=== PATIENT | female | born 1970 | race Caucasian/White ===

== ENCOUNTER → 2016-08-09 | Outpatient (CLI) | payer OTHER, BC | LOC: MW.LAB 12:12 | PROVIDERS: ATTEND Internal Medicine Hematology & Oncology | DX: D49.3 Neoplasm of unspecified behavior of breast (principal) | CPT/HCPCS: 36415; 82565 ==

== ENCOUNTER 2017-06-13 13:24 | Emergency (ER) | payer OTHER, BC ==
[2017-06-13] MEDS ORDERED: Sodium Chloride 0.9% 1,000 ML IV ONE (13:32)
--- NOTE | 2017-06-13 13:45 | EDM.PDOC ---
ED HPI GENERAL MEDICAL PROBLEM - General Chief Complaint: Abdominal Pain Stated Complaint: LOWER R ABD PAIN Time Seen by Provider: 06/13/17 13:28 Source of Information: Reports: Patient History Limitations: Reports: No Limitations - History of Present Illness INITIAL COMMENTS - FREE TEXT/NARRATIVE: HISTORY AND PHYSICAL: History of present illness: Patient is a 46 showed female who presents to the emergency room today with complaints of right lower quadrant pain, nausea and diarrhea. Patient states that has been mild and she has been able to attend work without interfering, but over the last 2 days has become more bothersome. SHe reports that it feels like menstrual cramps, but has not had a menstrual period in years. He denies any vaginal bleeding or discharge. Denies any constipation or dysuria. She denies any chest pain, shortness of breath, fever or chills. Patient does have a history of breast cancer with a double mastectomy and has been taking tamoxifen. She was told that she has a lymphoma which is not detected as of yet but they are monitoring her for this. She gets CT scans at [facility] every 6 months and has adequate follow-up through them. They said the cancer has not spread "hasn't yet" to the other organs. Review of systems: As per history of present illness and below otherwise all systems reviewed and negative. Past medical history: As per history of present illness and as reviewed below otherwise noncontributory. Surgical history: As per history of present illness and as reviewed below otherwise noncontributory. Social history: No reported history of drug or alcohol abuse. Family history: As per history of present illness and as reviewed below otherwise noncontributory. Physical exam: General: Nontoxic-appearing 46 showed female. Alert and oriented. Appears in no acute distress. HEENT: Atraumatic, normocephalic, pupils reactive, negative for conjunctival pallor or scleral icterus, mucous membranes moist, throat clear, neck supple, nontender, trachea midline. No meningeal sign. No drooling or trismus. Lungs: Clear to auscultation, breath sounds equal bilaterally, chest nontender. Heart: S1S2, regular rate and rhythm, no murmurs noted Abdomen: Soft, nondistended, mild tenderness to the right lower quadrant-no rebound tenderness. Negative for masses or hepatosplenomegaly. Negative for costovertebral tenderness. Pelvis: Stable nontender. Genitourinary: Deferred. Rectal: Deferred. Extremities: Atraumatic, moves all extremities per self without difficulty or deficits negative for cords or calf pain. Neurovascular unremarkable. Neuro: Awake, alert, oriented. Cranial nerves II through XII unremarkable. Cerebellum unremarkable. Motor and sensory unremarkable throughout. Exam nonfocal. Lab work is unremarkable. Her CT does show a large 10 x 6.6 cm right ovarian cyst. No evidence of appendicitis or any bowel obstruction or involvement. Patient reports that she has had cysts in the past which she has had removed. Due to her hormone therapy and along with history and answer I did encourage her to inform her provider at [facility] of this. I did set up a follow-up appointment with Samantha Sweeneyervin for 06/25/17 at 4 PM (per patient request). Diagnostics: CBC, CMP, amylase, lipase, UA, CT abdomen and pelvis Therapeutics: IV fluid, Toradol, Zofran Impression: #1 Abdominal pain #2 ovarian cyst, right Plan: 1. Please notify your provider in [place] of your visit to our emergency room today. It would be beneficial for you to have a local primary care provider for routine health issues. A follow-up appointment has been made for you with Samantha Sweeneyervin on June 25, 2017 (06/25/2017) at 4 PM at the [facility] clinic. 2. Tramadol has been prescribed for you for severe pain otherwise please take ibuprofen or Aleve as directed. Gentle heat to the area may be beneficial as well. 3. Turn to the ED as needed and as discussed. Definitive disposition and diagnosis as appropriate pending reevaluation and review of above. Duration: Day(s): Location: Reports: Abdomen RLQ Pain Score (Numeric/FACES): 3 - Related Data Allergies Allergy/AdvReac Type Severity Reaction Status Date / Time silver Allergy Other Verified 06/13/17 13:46 [From Tegaderm AG Mesh] vancomycin Allergy Other Verified 06/13/17 13:46 Home Meds: Home Meds Citalopram [Citalopram HBr] 40 mg PO DAILY 06/13/17 [History] Pantoprazole [ProTONIX] 40 mg PO DAILY 06/13/17 [History] Simvastatin [Zocor] 20 mg PO DAILY 06/13/17 [History] Tamoxifen [Nolvadex] 20 mg PO DAILY 06/13/17 [History] Vitamin D3/Folic Acid [Roxifol-D Tablet] 50,000 units PO DAILY 06/13/17 [History ] traZODone HCl [Trazodone HCl] 50 mg PO DAILY 06/13/17 [History] ED ROS GENERAL - Review of Systems Review Of Systems: ROS reveals no pertinent complaints other than HPI. ED EXAM, GI/ABD - Physical Exam Exam: See Below (See dictation) Course - Vital Signs Last Recorded V/S: Last Vital Signs Temp 99.6 F 06/13/17 13:43 Pulse 83 06/13/17 13:43 Resp 20 06/13/17 13:43 BP 143/46 H 06/13/17 13:43 Pulse Ox 97 06/13/17 13:43 - Orders/Labs/Meds Labs: Laboratory Tests 06/13/17 06/13/17 06/13/17 Range/Units 13:39 13:55 13:55 WBC 7.53 (4.0-11.0) K/uL RBC 4.85 (4.30-5.90) M/uL Hgb 13.1 (12.0-16.0) g/dL Hct 39.2 (36.0-46.0) % MCV 80.8 (80.0-98.0) fL MCH 27.0 (27.0-32.0) pg MCHC 33.4 (31.0-37.0) g/dL RDW Std Deviation 41.3 (28.0-62.0) fl RDW Coeff of Sherman 14 (11.0-15.0) % Plt Count 320 (150-400) K/uL MPV 9.20 (7.40-12.00) fL Neut % (Auto) 60.4 (48.0-80.0) % Lymph % (Auto) 30.3 (16.0-40.0) % [place] % (Auto) 7.2 (0.0-15.0) % Eos % (Auto) 1.7 (0.0-7.0) % Baso % (Auto) 0.4 (0.0-1.5) % Neut # (Auto) 4.6 (1.4-5.7) K/uL Lymph # (Auto) 2.3 (0.6-2.4) K/uL [place] # (Auto) 0.5 (0.0-0.8) K/uL Eos # (Auto) 0.1 (0.0-0.7) K/uL Baso # (Auto) 0.0 (0.0-0.1) K/uL Nucleated RBC % 0.0 /100WBC Nucleated RBCs # 0 K/uL Sodium 141 (136-146) mmol/L Potassium 3.9 (3.5-5.1) mmol/L Chloride 109 (98-110) mmol/L Carbon Dioxide 22 (21-31) mmol/L BUN 12 (6.0-23.0) mg/dL Creatinine 0.7 (0.6-1.5) mg/dL Est Cr Clr Drug Dosing 90.36 mL/min Estimated GFR (MDRD) > 60.0 ml/min Glucose 96 (60-110) mg/dL Calcium 9.4 (8.8-10.8) mg/dL Total Bilirubin 0.3 (0.1-1.5) mg/dL AST 14 (5-40) IU/L ALT 16 (8-54) IU/L Alkaline Phosphatase 59 (40-150) Total Protein 7.2 (6.0-8.0) g/dL Albumin 4.4 (3.5-5.0) g/dL Globulin 2.8 (2.0-3.5) g/dL Albumin/Globulin Ratio 1.6 (1.3-2.8) Amylase 51 (10-90) U/L Lipase 36 (7-80) U/L Urine Color YELLOW Urine Appearance CLEAR Urine pH 5.5 (5.0-8.0) Ur Specific Elizabeth 1.020 (1.001-1.035) Urine Protein NEGATIVE (NEGATIVE) mg/dL Urine Glucose (UA) NEGATIVE (NEGATIVE) mg/dL Urine Ketones NEGATIVE (NEGATIVE) mg/dL Urine Occult Blood SMALL H (NEGATIVE) Urine Nitrite NEGATIVE (NEGATIVE) Urine Bilirubin NEGATIVE (NEGATIVE) Urine Urobilinogen 0.2 (<2.0) EU/dL Ur Leukocyte Esterase NEGATIVE (NEGATIVE) Urine RBC 0-2 (0-2/HPF) Urine WBC 0-2 (0-5/HPF) Ur Epithelial Cells FEW (NONE-FEW) Urine Bacteria RARE (NEGATIVE) Urine Mucus LIGHT (NONE-MOD) Meds: Medications Discontinued Medications Generic Name Dose Route Start Last Admin Trade Name Alona PRN Reason Stop Dose Admin Sodium Chloride 1,000 mls @ 999 mls/hr 06/13/17 13:32 06/13/17 14:18 Normal Saline IV 06/13/17 14:32 999 mls/hr STAT ONE Administration Iopamidol 100 ml 06/13/17 15:12 06/13/17 15:16 Isovue-370 (76%) IVPUSH 06/13/17 15:13 100 ml ONETIME STA Administration Ketorolac Tromethamine 30 mg 06/13/17 14:12 06/13/17 14:19 Toradol IVPUSH 06/13/17 14:13 30 mg ONETIME ONE Administration Morphine Sulfate 4 mg 06/13/17 15:19 06/13/17 15:31 Morphine IVPUSH 06/13/17 15:20 4 mg ONETIME ONE Administration Ondansetron HCl 4 mg 06/13/17 14:12 06/13/17 14:19 Zofran IVPUSH 06/13/17 14:13 4 mg ONETIME ONE Administration Departure - Departure Time of Disposition: 15:49 Disposition: Home, Self-Care 01 Clinical Impression: Ovarian cyst Qualifiers: Laterality: right Qualified Code(s): N83.201 - Unspecified ovarian cyst, right side - Discharge Information Referrals: Abhay Willis MD [Primary Care Provider] - Forms: ED Department Discharge Additional Instructions: My general discharge The following information is given to patients seen in the emergency department who are being discharged to home. This information is to outline your options for follow-up care. We provide all patients seen in our emergency department with a follow-up referral. The need for follow-up, as well as the timing and circumstances, are variable depending upon the specifics of your emergency department visit. If you don't have a primary care physician on staff, we will provide you with a referral. We always advise you to contact your personal physician following an emergency department visit to inform them of the circumstance of the visit and for follow-up with them and/or the need for any referrals to a consulting specialist. The emergency department will also refer you to a specialist when appropriate. This referral assures that you have the opportunity for follow-up care with a specialist. All of these measure are taken in an effort to provide you with optimal care, which includes your follow-up. Under all circumstances we always encourage you to contact your private physician who remains a resource for coordinating your care. When calling for follow-up care, please make the office aware that this follow-up is from your recent emergency room visit. If for any reason you are refused follow-up, please contact the [facility] Emergency Department at and asked to speak to the emergency department charge nurse [facility] Primary Care: Samantha Colón (Women's Health STAMP ANALYST) [address] [place] [id number] 1. Please notify your provider in [place] of your visit to our emergency room today. It would be beneficial for you to have a local primary care provider for routine health issues. A follow-up appointment has been made for you with Samantha Gurrola on June 25, 2017 (06/25/2017) at 4 PM at the women's health clinic. 2. Tramadol has been prescribed for you for severe pain otherwise please take ibuprofen or Aleve as directed. Gentle heat to the area may be beneficial as well. 3. Turn to the ED as needed and as discussed.
[2017-06-13] MEDS ORDERED: Ketorolac 30 MG/ML SDV IVPUSH ONE (14:12)
[2017-06-13] MEDS ORDERED: Ondansetron 4 MG/2 ML SDV IVPUSH ONE (14:12)
[2017-06-13 14:34] LABS: CHLORIDE,CL 109 mmol/L (98-110); SODIUM,NA 141 mmol/L (136-146)
[2017-06-13] MEDS ORDERED: Iopamidol 755 Mg/ML 100 ML Bottle IVPUSH STA (15:12)
[2017-06-13] MEDS ORDERED: Morphine 4 MG/ML Syringe IVPUSH ONE (15:19)
--- NOTE | 2017-06-13 15:29 | CT ---
CT of the abdomen and pelvis with contrast. HISTORY: Pain TECHNIQUE: Axial CT images were obtained of the abdomen and pelvis following administration of 100 mL of Isovue-370 in the right antecubital fossa without complication. Coronal and sagittal reconstructi ons obtained. FINDINGS: The lung bases are clear, no pleural effusion. Breast implants are noted. There is fluid signal noted surrounding the left breast implant, otherwise no evidence of intracapsular rupture. The liver, spleen, and adrenal glands appear normal. The pancreas is unremarkable. Cholecystectomy cl ips are noted. No bulky retroperitoneal lymphadenopathy or abdominal ascites. The kidneys enhance and function symmetrically without evidence of an obstructive uropathy. The large and small bowel are normal in caliber without evidence of obstruction. The appendix is norm al. No bulky pelvic lymphadenopathy or free pelvic fluid. The urinary bladder is normal. There is a l arge 10 x 6.6 cm right ovarian cyst without definite mural nodularity. The left ovary appears normal. Uterus is unremarkable. No suspicious osseous abnormalities. IMPRESSION: 1. Large 10 x 6.6 cm right ovarian cyst. Follow-up may be beneficial. 2. Otherwise no acute findings demonstrated within the abdomen or pelvis.
== END 2017-06-13 15:59 | disposition home or self-care (01) ==
LOC: MW.ED 13:24
DX: N83.201 Unspecified ovarian cyst, right side (principal); Z88.1 Allergy status to other antibiotic agents; Z79.899 Other long term (current) drug therapy
CPT/HCPCS: 36415; 74177; 80053; 81001; 82150; 83690; 85025; 96361; 96374; 96375; 99284; J1885; J2270; J2405; J7040; Q9967

== ENCOUNTER 2017-06-23 12:45 | Emergency (ER) | payer OTHER, BC ==
--- NOTE | 2017-06-23 13:00 | EDM.PDOC ---
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 She did have a biopsy done by Dr. Green on 2017. She was told to "expect some spotting" but since that time has had more than expected bleeding (per patient). Patient had a CT scan on 06/13/2017 which showed a cystic mass. This was followed up with a pelvic ultrasound on 2017 which showed a large cystic mass on the right adnexa measuring 13 cm and some endometrial thickening. Dr. Green performed the biopsy, but soon after that time she has had "gushing of blood whenever I stand". She does report she has some dizziness and feeling lightheaded with position changes. She is having right lower quadrant pain, rating it a 5 out of 10. Reports that the plan was to have a total hysterectomy on 06/27/2017, pending on the biopsy results. Denies any fever, chills, chest pain or shortness of breath. Denies using any tampons or recent sexual/pelvic activity. Patient does have a past medical history of breast cancer with double mastectomy. Currently on tamoxifen for admission. Sees an oncologist at [facility]. Review of systems: As per history of present illness and below otherwise all systems reviewed and negative. Past medical history: As per history of present illness and as reviewed below otherwise noncontributory. Surgical history: As per history of present illness and as reviewed below otherwise noncontributory. Social history: No reported history of drug or alcohol abuse. Family history: As per history of present illness and as reviewed below otherwise noncontributory. Physical exam: General: Well-developed and well-nourished 46-year-old female. Alert and oriented. Nontoxic appearing and in no acute distress. HEENT: Atraumatic, normocephalic, pupils reactive, negative for conjunctival pallor or scleral icterus, mucous membranes moist, throat clear, neck supple, nontender, trachea midline. Lungs: Clear to auscultation, breath sounds equal bilaterally, chest nontender. Heart: S1S2, regular rate and rhythm Abdomen: Soft, nondistended, suprapubic and right lower quadrant tenderness. Negative for masses or hepatosplenomegaly. Negative for costovertebral tenderness. Pelvis: Stable nontender. Genitourinary: This was done with a associate attorney at the bedside. Cervical OS has moderate amount of bleeding, steady slow trickle. Right adenexal tenderness. Rectal: Deferred. Extremities: Atraumatic, negative for cords or calf pain. Neurovascular unremarkable. Neuro: Awake, alert, oriented. Cranial nerves II through XII unremarkable. Cerebellum unremarkable. Motor and sensory unremarkable throughout. Exam nonfocal. Labs on 06/13/2017: Hemoglobin 13.1, today's reading is 12.3. Labs are normal. Pelvic exam was completed, please see physical exam for details. Dr Green was consulted on this case. He states she is able to go home as her labs and vital signs are stable. She does have an appointment on Saturday for follow-up with him. Shared this information with the patient. We reviewed signs and symptoms that would prompt her to come back to the emergency room. We will give her a prescription for [place] for comfort. She is agreeable to plan of care. She denies any further questions at this time. Diagnostics: CBC, CMP, INR Therapeutics: IV fluid, morphine, pelvic exam Impression: #1 Post biopsy bleeding #2 abdominal pain Plan: 1. Dr. Green was consulted on this case. Your hemoglobin, vital signs and bleeding are stable at this point. Norma has advised for you to keep your appointment you have scheduled on Saturday. Will discuss further care during this time. 2. Take the medication as prescribed. May cause drowsiness, so do not take while needing to function outside of the house or driving. Continue to use pads , not tampons. 3. Return to the emergency room as needed and as discussed. Definitive disposition and diagnosis as appropriate pending reevaluation and review of above. Onset Date: 06/21/17 Duration: Day(s): Location: Reports: Pelvis right ovary Pain Score (Numeric/FACES): 5 - Related Data Allergies Allergy/AdvReac Type Severity Reaction Status Date / Time silver Allergy Other Verified 06/23/17 12:56 [From Tegaderm AG Mesh] vancomycin Allergy Other Verified 06/23/17 12:56 Home Meds: Home Meds Citalopram [Citalopram HBr] 40 mg PO DAILY 06/13/17 [History] Pantoprazole [ProTONIX] 40 mg PO DAILY 06/13/17 [History] Simvastatin [Zocor] 20 mg PO DAILY 06/13/17 [History] Tamoxifen [Nolvadex] 20 mg PO DAILY 06/13/17 [History] Vitamin D3/Folic Acid [Roxifol-D Tablet] 50,000 units PO DAILY 06/13/17 [History ] traZODone HCl [Trazodone HCl] 50 mg PO DAILY 06/13/17 [History] Past Medical History - Infectious Disease History Infectious Disease History: Reports: Chicken Pox - Past Surgical History HEENT Surgical History: Reports: Tonsillectomy GI Surgical History: Reports: Cholecystectomy Female Surgical History: Reports: Mastectomy, Other (See Below) Other Female Surgeries/Procedures: tubes removed, bilateral breast mastectomy , Laparotomy Musculoskeletal Surgical History: Reports: Other (See Below) Other Musculoskeletal Surgeries/Procedures:: R knee latereral release, Left hand plate Social & Family History - Family History Family Medical History: Noncontributory - Tobacco Use Smoking Status *Q: Never Smoker Second Hand Smoke Exposure: No - Caffeine Use Caffeine Use: Reports: Coffee, Soda - Recreational Drug Use Recreational Drug Use: No ED ROS GENERAL - Review of Systems Review Of Systems: ROS reveals no pertinent complaints other than HPI. ED EXAM, GENERAL - Physical Exam Exam: See Below (See dictation) Course - Vital Signs Last Recorded V/S: Last Vital Signs Temp 97.6 F 06/23/17 13:54 Pulse 72 06/23/17 13:54 Resp 16 06/23/17 13:54 BP 138/69 06/23/17 13:54 Pulse Ox 97 06/23/17 13:54 - Orders/Labs/Meds Orders: Active Orders 24 hr Category Date Time Status UA W/MICROSCOPIC [URIN] Stat Lab 06/23/17 13:50 Ordered Labs: Laboratory Tests 06/23/17 06/23/17 06/23/17 Range/Units 13:14 13:40 13:40 WBC 6.16 (4.0-11.0) K/uL RBC 4.57 (4.30-5.90) M/uL Hgb 12.3 (12.0-16.0) g/dL Hct 36.9 (36.0-46.0) % MCV 80.7 (80.0-98.0) fL MCH 26.9 L (27.0-32.0) pg MCHC 33.3 (31.0-37.0) g/dL RDW Std Deviation 40.2 (28.0-62.0) fl RDW Coeff of Sherman 14 (11.0-15.0) % Plt Count 282 (150-400) K/uL MPV 9.60 (7.40-12.00) fL Neut % (Auto) 63.1 (48.0-80.0) % Lymph % (Auto) 28.9 (16.0-40.0) % [place] % (Auto) 6.0 (0.0-15.0) % Eos % (Auto) 1.5 (0.0-7.0) % Baso % (Auto) 0.5 (0.0-1.5) % Neut # (Auto) 3.9 (1.4-5.7) K/uL Lymph # (Auto) 1.8 (0.6-2.4) K/uL [place] # (Auto) 0.4 (0.0-0.8) K/uL Eos # (Auto) 0.1 (0.0-0.7) K/uL Baso # (Auto) 0.0 (0.0-0.1) K/uL Nucleated RBC % 0.0 /100WBC Nucleated RBCs # 0 K/uL INR 0.99 Sodium 140 (136-146) mmol/L Potassium 4.2 (3.5-5.1) mmol/L Chloride 107 (98-110) mmol/L Carbon Dioxide 23 (21-31) mmol/L BUN 11 (6.0-23.0) mg/dL Creatinine 0.7 (0.6-1.5) mg/dL Est Cr Clr Drug Dosing 90.36 mL/min Estimated GFR (MDRD) > 60.0 ml/min Glucose 97 (60-110) mg/dL Calcium 9.3 (8.8-10.8) mg/dL Total Bilirubin 0.3 (0.1-1.5) mg/dL AST 16 (5-40) IU/L ALT 16 (8-54) IU/L Alkaline Phosphatase 54 (40-150) Total Protein 6.9 (6.0-8.0) g/dL Albumin 4.3 (3.5-5.0) g/dL Globulin 2.6 (2.0-3.5) g/dL Albumin/Globulin Ratio 1.7 (1.3-2.8) Meds: Medications Discontinued Medications Generic Name Dose Route Start Last Admin Trade Name Alona PRN Reason Stop Dose Admin Hydrocodone Bitart/Acetaminophen 1 tab 06/23/17 14:01 [place] 325-5 Mg PO 06/23/17 14:02 ONETIME ONE Sodium Chloride 1,000 mls @ 999 mls/hr 06/23/17 13:08 Normal Saline IV 06/23/17 14:08 STAT ONE Morphine Sulfate 2 mg 06/23/17 13:08 Morphine IVPUSH 06/23/17 13:09 ONETIME ONE Ondansetron HCl 4 mg 06/23/17 13:08 Zofran IVPUSH 06/23/17 13:09 ONETIME ONE Departure - Departure Time of Disposition: 14:24 Disposition: Home, Self-Care 01 Clinical Impression: Postoperative vaginal bleeding following genitourinary procedure Abdominal pain Qualifiers: Abdominal location: right lower quadrant Qualified Code(s): R10.31 - Right lower quadrant pain - Discharge Information Referrals: Marcio Green MD [Primary Care Provider] - Forms: ED Department Discharge Additional Instructions: My general discharge The following information is given to patients seen in the emergency department who are being discharged to home. This information is to outline your options for follow-up care. We provide all patients seen in our emergency department with a follow-up referral. The need for follow-up, as well as the timing and circumstances, are variable depending upon the specifics of your emergency department visit. If you don't have a primary care physician on staff, we will provide you with a referral. We always advise you to contact your personal physician following an emergency department visit to inform them of the circumstance of the visit and for follow-up with them and/or the need for any referrals to a consulting specialist. The emergency department will also refer you to a specialist when appropriate. This referral assures that you have the opportunity for follow-up care with a specialist. All of these measure are taken in an effort to provide you with optimal care, which includes your follow-up. Under all circumstances we always encourage you to contact your private physician who remains a resource for coordinating your care. When calling for follow-up care, please make the office aware that this follow-up is from your recent emergency room visit. If for any reason you are refused follow-up, please contact the [facility] Emergency Department at and asked to speak to the emergency department charge nurse. [facility] Primary Care - Women's Health [address] [place] [phone] Green was consulted on your case, he is aware of your visit. Your hemoglobin, vital signs and bleeding are stable at this point. Norma has advised for you to keep your appointment you have scheduled on Saturday. Will discuss further care during this time. 2. Take the medication as prescribed. May cause drowsiness, so do not take while needing to function outside of the house or driving. Continue to use pads , not tampons. 3. Return to the emergency room as needed and as discussed. - My Orders Last 24 Hours: My Active Orders 06/23/17 13:50 UA W/MICROSCOPIC [URIN] Stat - Assessment/Plan Last 24 Hours: My Active Orders 06/23/17 13:50 UA W/MICROSCOPIC [URIN] Stat
[2017-06-23] MEDS ORDERED: Ondansetron 4 MG/2 ML SDV IVPUSH ONE (13:08)
[2017-06-23] MEDS ORDERED: Sodium Chloride 0.9% 1,000 ML IV ONE (13:08)
[2017-06-23] MEDS ORDERED: Morphine 2 MG/ML Syringe IVPUSH ONE (13:08)
[2017-06-23] MEDS ORDERED: Acetaminophen/HYDROcodone 325-5 MG Tab PO ONE (14:01)
[2017-06-23 14:06] LABS: CHLORIDE,CL 107 mmol/L (98-110); SODIUM,NA 140 mmol/L (136-146)
== END 2017-06-23 14:42 | disposition home or self-care (01) ==
LOC: MW.ED 12:45
DX: N99.820 Postprocedural hemorrhage of a genitourinary system organ or structure following a genitourinary system procedure (principal); R10.31 Right lower quadrant pain; Z88.1 Allergy status to other antibiotic agents; Z79.899 Other long term (current) drug therapy
CPT/HCPCS: 36415; 80053; 85025; 85610; 99284; A9270

== ENCOUNTER 2017-06-27 06:48 | Day surgery (SDC) | payer OTHER, BC ==
[2017-06-26 12:46] LABS: CHLORIDE,CL 107 mmol/L (98-110); SODIUM,NA 141 mmol/L (136-146)
[~2017-06-27 06:48] MED LIST: Lactated Ringers 1,000 ML IV SCH; Sodium Chloride 0.9% 10 ML Syringe FLUSH PRN; Sodium Chloride 0.9% 2.5 ML Syringe FLUSH PRN; ceFAZolin 2 GM in Premix Bag 1 BAG IV ONE
[2017-06-27] MEDS ORDERED: Ondansetron 4 MG/2 ML SDV ONE (07:09)
[2017-06-27] MEDS ORDERED: Midazolam 1 MG/ML 2 ML SDV ONE (07:09)
[2017-06-27] MEDS ORDERED: Propofol 200 MG/20 ML SDV ONE (07:09)
[2017-06-27] MEDS ORDERED: Succinylcholine/Normal Saline 200 MG/10 ML Syringe ONE (07:09)
[2017-06-27] MEDS ORDERED: fentaNYL 250 MCG/5 ML SDV ONE (07:09)
[2017-06-27] MEDS ORDERED: Rocuronium 10 MG/ML 10 ML Syringe ONE (07:09)
[2017-06-27] MEDS ORDERED: Lidocaine 2% 5 ML SDV ONE (07:09)
[2017-06-27] MEDS ORDERED: Famotidine 20 MG/2 ML SDV IVPUSH ONE (07:21)
[2017-06-27] MEDS ORDERED: Scopolamine 1.5 MG Transdermal Patch TRDERM PRN (07:22)
--- NOTE | 2017-06-27 07:28 | PCM.PREANE ---
Preanesthetic Assessment - Anesthesia/Transfusion/Family Hx Type of Anesthesia Reaction: Excessive Nausea/Vomiting Family History of Anesthesia Reaction: No Transfusion History: No Prior Transfusion(s) Intubation History: Unknown - Review of Systems General: No Symptoms Pulmonary: No Symptoms Cardiovascular: No Symptoms Gastrointestinal: No Symptoms Neurological: No Symptoms Other: Reports: None - Physical Assessment Height: 1.65 m Weight: 102.058 kg ASA Class: 2 Mental Status: Alert & Oriented x3 Airway Class: Mallampati = 2 Dentition: Reports: Normal Dentition Thyro-Mental Finger Breadths: 3 Mouth Opening Finger Breadths: 2 (small mouth) ROM/Head Extension: Full Lungs: Clear to Auscultation, Normal Respiratory Effort Cardiovascular: Regular Rate, Regular Rhythm - Lab Values: Laboratory Last Values WBC 4.94 K/uL (4.0-11.0) 06/26/17 12:07 RBC 4.36 M/uL (4.30-5.90) 06/26/17 12:07 Hgb 11.7 g/dL (12.0-16.0) L 06/26/17 12:07 Hct 35.4 % (36.0-46.0) L 06/26/17 12:07 MCV 81.2 fL (80.0-98.0) 06/26/17 12:07 MCH 26.8 pg (27.0-32.0) L 06/26/17 12:07 MCHC 33.1 g/dL (31.0-37.0) 06/26/17 12:07 RDW Std Deviation 41.2 fl (28.0-62.0) 06/26/17 12:07 RDW Coeff of [place] 14 % (11.0-15.0) 06/26/17 12:07 Plt Count 287 K/uL (150-400) 06/26/17 12:07 MPV 9.20 fL (7.40-12.00) 06/26/17 12:07 Nucleated RBC % 0.0 /100WBC 06/26/17 12:07 Nucleated RBCs # 0 K/uL 06/26/17 12:07 Sodium 141 mmol/L (136-146) 06/26/17 12:07 Potassium 4.0 mmol/L (3.5-5.1) 06/26/17 12:07 Chloride 107 mmol/L (98-110) 06/26/17 12:07 Carbon Dioxide 26 mmol/L (21-31) 06/26/17 12:07 BUN 9 mg/dL (6.0-23.0) 06/26/17 12:07 Creatinine 0.7 mg/dL (0.6-1.5) 06/26/17 12:07 Est Cr Clr Drug Dosing 90.36 mL/min 06/26/17 12:07 Estimated GFR (MDRD) > 60.0 ml/min 06/26/17 12:07 Glucose 103 mg/dL (60-110) 06/26/17 12:07 Calcium 9.5 mg/dL (8.8-10.8) 06/26/17 12:07 HCG, Qual NEGATIVE (NEG) 06/26/17 12:07 Blood Type A POSITIVE 06/26/17 12:07 Antibody Screen NEGATIVE 06/26/17 12:07 - Allergies Allergies/Adverse Reactions: Allergies Allergy/AdvReac Type Severity Reaction Status Date / Time vancomycin Allergy cj Verified 06/26/17 09:44 syndrome steri strips Allergy Bleeding Uncoded 06/26/17 09:44 - Blood Blood Available: No - Anesthesia Plan Pre-Op Medication Ordered: None - Acknowledgements Anesthesia Type Planned: General Anesthesia Pt an Appropriate Candidate for the Planned Anesthesia: Yes Alternatives and Risks of Anesthesia Discussed w Pt/Guardian: Yes Pt/Guardian Understands and Agrees with Anesthesia Plan: Yes PreAnesthesia Questionnaire HEENT History: Reports: None Cardiovascular History: Reports: High Cholesterol Respiratory History: Reports: Sleep Apnea Other Respiratory History: uses CPAP (instructed to bring in with her) Gastrointestinal History: Reports: GERD, Hiatal Hernia Genitourinary History: Reports: None 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 (See Below) Other OB/BYN History: hx invetro fertilization Musculoskeletal History: Reports: Arthritis, Fracture Other Musculoskeletal History: fx left hand Neurological History: Reports: Concussion, Migraines Psychiatric History: Reports: Anxiety, Depression Endocrine/Metabolic History: Reports: Obesity/BMI 30+ Hematologic History: Reports: None Immunologic History: Reports: None Oncologic (Cancer) History: Reports: Breast (infiltrating ductal cancer of right breast) Dermatologic History: Reports: Eczema - Infectious Disease History Infectious Disease History: Reports: Chicken Pox - Past Surgical History Head Surgeries/Procedures: Reports: None HEENT Surgical History: Reports: Tonsillectomy Cardiovascular Surgical History: Reports: None Respiratory Surgical History: Reports: None GI Surgical History: Reports: Cholecystectomy, EGD Female Surgical History: Reports: Breast Biopsy, Mastectomy, Other (See Below ) Other Female Surgeries/Procedures: laparotomy-tubes removed (salpingectomy), bilateral breast mastectomy, breast lumpectomy, hysteroscopy with polypectomy Endocrine Surgical History: Reports: None Neurological Surgical History: Reports: None Musculoskeletal Surgical History: Reports: Other (See Below) Other Musculoskeletal Surgeries/Procedures:: R knee latereral release, Left hand plate and screws Oncologic Surgical History: Reports: Biopsy of Breast, Mastectomy Other Oncologic Surgeries/Procedures: latonya mastectomy, hx of bigg cath insertion and removal Dermatological Surgical History: Reports: None - SUBSTANCE USE Smoking Status *Q: Never Smoker Second Hand Smoke Exposure: No Recreational Drug Use History: No - HOME MEDS Home Medications: Home Meds Citalopram [Citalopram HBr] 40 mg PO DAILY 06/13/17 [History] Pantoprazole [ProTONIX] 40 mg PO DAILY 06/13/17 [History] Simvastatin [Zocor] 20 mg PO DAILY 06/13/17 [History] Tamoxifen [Nolvadex] 20 mg PO DAILY 06/13/17 [History] traZODone HCl [Trazodone HCl] 50 mg PO DAILY 06/13/17 [History] Ascorbic Acid [Vitamin C] 1,000 mg PO DAILY 06/26/17 [History] Cholecalciferol (Vitamin D3) [Vitamin D3] 2,000 units PO DAILY 06/26/17 [History ] Hydrocodone/Acetaminophen [Hydrocodon-Acetaminophen 5-325] 1 tab PO ASDIRECTED PRN 06/26/17 [History] Ibuprofen 3 - 4 tab PO ASDIRECTED PRN 06/26/17 [History] Naproxen 1 tab PO ASDIRECTED PRN 06/26/17 [History] Naproxen Sodium [Aleve] 2 tab PO ASDIRECTED PRN 06/26/17 [History] Vitron With Iron 1 tab PO DAILY 06/26/17 [History] traMADol [Ultram] 50 mg PO ASDIRECTED PRN 06/26/17 [History] - CURRENT (IN HOUSE) MEDS Current Meds: Current Medications Famotidine (Pepcid) 20 mg IVPUSH ONETIME ONE Stop: 06/27/17 07:22 Lactated Ringer's (Ringers, Lactated) 1,000 mls @ 125 mls/hr IV ASDIRECTED [facility] Scopolamine (Transderm-Scop) 1.5 mg TRDERM Q72H PRN PRN Reason: Nausea Sodium Chloride (Saline Flush) 10 ml FLUSH ASDIRECTED PRN PRN Reason: Keep Vein Open Sodium Chloride (Saline Flush) 2.5 ml FLUSH ASDIRECTED PRN PRN Reason: Keep Vein Open Discontinued Medications Fentanyl (Sublimaze) Confirm Administered Dose 250 mcg .ROUTE .STK-MED ONE Stop: 06/27/17 07:10 Cefazolin Sodium/Dextrose 2 gm (/ Premix) 50 mls @ 100 mls/hr IV ONETIME ONE Stop: 06/26/17 11:30 Lidocaine (Xylocaine-Mpf 2%) Confirm Administered Dose 5 ml .ROUTE .STK-MED ONE Stop: 06/27/17 07:10 Midazolam HCl (Versed 1 Mg/Ml) Confirm Administered Dose 2 mg .ROUTE .STK-MED ONE Stop: 06/27/17 07:10 Ondansetron HCl (Zofran) Confirm Administered Dose 4 mg .ROUTE .STK-MED ONE Stop: 06/27/17 07:10 Propofol (Diprivan 20 Ml) Confirm Administered Dose 200 mg .ROUTE .STK-MED ONE Stop: 06/27/17 07:10 Rocuronium [place] (Zemuron) Confirm Administered Dose 100 mg .ROUTE .STK-MED ONE Stop: 06/27/17 07:10 Succinylcholine Chloride (Succinylcholine In Ns Pf) Confirm Administered Dose 200 mg .ROUTE .STK-MED ONE Stop: 06/27/17 07:10
[2017-06-27] MEDS ORDERED: ceFAZolin 1 GM Vial ONE (08:15)
[2017-06-27] MEDS ORDERED: Sodium Chloride 0.9% 20 ML ONE (08:15)
[2017-06-27] MEDS ORDERED: ePHEDrine 50 MG/ML SDV ONE (08:25)
[2017-06-27] MEDS ORDERED: Dexamethasone 4 MG/ML 5 ML MDV ONE (08:27)
[2017-06-27] MEDS ORDERED: Glycopyrrolate 0.2 MG/ML SDV ONE (08:28)
[2017-06-27] MEDS ORDERED: Furosemide 40 MG/4 ML VIAL ONE (08:33)
[2017-06-27] MEDS ORDERED: Octyl 2-Cyanoacrylate 1 Tube ONE (08:46)
[2017-06-27] MEDS ORDERED: Fluorescein 5 ML Vial ONE (08:47)
[2017-06-27] MEDS ORDERED: fentaNYL 100 MCG/2 ML SDV ONE (09:01)
[2017-06-27] MEDS ORDERED: Promethazine 25 MG/ML SDV IM PRN (10:22)
[2017-06-27] MEDS ORDERED: Acetaminophen/oxyCODONE 325-5 MG Tab PO PRN (10:22)
[2017-06-27] MEDS ORDERED: Ketorolac 30 MG/ML SDV IVPUSH ONE (10:22)
[2017-06-27] MEDS ORDERED: Ondansetron 4 MG/2 ML SDV IVPUSH PRN (10:22)
[2017-06-27] MEDS ORDERED: Morphine 4 MG/ML Syringe IVPUSH PRN (10:22)
[2017-06-27] MEDS ORDERED: Ketorolac 30 MG/ML SDV IVPUSH PRN (10:22)
--- NOTE | 2017-06-27 10:26 | PCM.OPNOTE ---
- General Post-Op/Procedure Note Date of Surgery/Procedure: 06/27/17 Operative Procedure(s): TLH BSO CYSTO Findings: R. Ovarian Cyst Post-Op Diagnosis: Same Anesthesia Technique: General ET Tube Primary Surgeon: Marcio Green EBL in mLs: 150 Complications: None Condition: Good
[2017-06-27] MEDS ORDERED: Belladonna Alkaloids/Opium 16.2-30 MG Supp RECTAL ONE (11:04)
[2017-06-27] MEDS: Morphine 2 MG/ML Syringe IVPUSH PRN ×2 (11:07→20:23)
[2017-06-27] MEDS ORDERED: Belladonna Alkaloids/Opium 16.2-30 MG Supp ONE (11:10)
--- NOTE | 2017-06-27 13:46 | OR ---
SURGEON: Marcio Green MD DATE OF PROCEDURE: PREOPERATIVE DIAGNOSES: 1. Menometrorrhagia. 2. Right ovarian cyst. POSTOPERATIVE DIAGNOSES: 1. Menometrorrhagia. 2. Right ovarian cyst. OPERATIONS PERFORMED: 1. Multiple puncture. 2. Diagnostic laparoscopy. 3. Lysis of adhesions. 4. Total laparoscopic hysterectomy. 5. Laparoscopic bilateral salpingo-oophorectomy. 6. Cystoscopy. 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 ANESTHESIA: General endotracheal intubation, Harvinder Curran and Dr. Jolley. ESTIMATED BLOOD LOSS: 150 mL. COMPLICATIONS: None. FINDINGS: Right ovarian cyst about 10 cm in diameter; pelvic adhesion from her previous pelvic surgery, which is tubal ligation. INDICATION FOR SURGERY: [place] refer to the admit note. PROCEDURE IN DETAIL: The patient was brought to the OR, properly identified, and after adequate level of anesthesia, the patient was placed in lithotomy position. After taking a time-out, the patient was prepped and draped in sterile fashion as usual. Amado catheter was placed in the bladder, and the Lion surgical manipulator was placed in the uterus for manipulation. Then, the operation shifted abdominally. Stab wound done beneath the umbilicus. The Veress needle was placed in the peritoneal cavity and sterilized with 3.5 L of carbon dioxide. Then, utilizing the Visiport technique, central trocar was placed under direct vision, so once we are in, then a 10 to 12 trocar in the left iliac fossa and 5 mm trocar in the right iliac fossa. Later on, we needed 5 mm trocar suprapubically for retraction. The operation was started by lysing the adhesion from the omentum and the anterior abdominal wall on the left pelvic sidewall. Once we did that and restored normal anatomy, then the superior pedicle coagulated and transected from both side. Tubes and ovary included with the specimens, and then the round ligament coagulated and transected, and then the anterior leaf of the ligament dissected downward medially pushing the bladder completely away from the operative field. Then, a Lion manipulator the circular ring can be easily palpated through the vagina and then circular incision in the vaginal mucosa around the tip of that manipulator detaching the cervix from its attachment to the uterus. Then, the tubes and ovary, and the uterus in both sides removed vaginally and then pneumoperitoneum re-established by placing vaginal pack in the vagina, and then thorough irrigation of the pelvis shows no oozing and no bleeding. We proceeded to close the vaginal cuff laparoscopically using 2-0 PDS interrupted sutures. While we are doing that, we asked Anesthesia personnel to give the patient fluorescein and once the vagina was closed, then the Amado catheter was removed and cystoscopy was performed. The bladder was intact. Both ureteric orifices were seen with the dye coming from both of them. Thus, the patency of both ureters verified. Satisfied with this findings, the instrument and hardware were retrieved from the abdomen and the vagina, and the multiple laparoscopic incision was closed with 3-0 Vicryl monofilamentous and Dermabond. Instrument and sponge counts were correct, and the patient tolerated the procedure well and went to recovery room in stable general condition. RAQUEL DOUGHERTY /[id number]
[2017-06-27] MEDS: Acetaminophen/oxyCODONE 325-5 MG Tab PO PRN (14:01)
[2017-06-27] MEDS ORDERED: Simvastatin 20 MG Tab PO SCH (21:00)
[2017-06-27] MEDS ORDERED: Pantoprazole 40 MG Tab.CR PO SCH (21:00)
[2017-06-27] MEDS ORDERED: Citalopram 20 MG Tab PO SCH (21:00)
[2017-06-27] MEDS ORDERED: Tamoxifen 10 MG Tab PO SCH (21:00)
[2017-06-28] MEDS: Acetaminophen/oxyCODONE 325-5 MG Tab PO PRN (00:12)
[2017-06-28 07:01] LABS: CHLORIDE,CL 106 mmol/L (98-110); SODIUM,NA 139 mmol/L (136-146)
--- NOTE | 2017-06-28 09:08 | PCM48HPAN ---
Post Anesthesia Note - EVALUATION WITHIN 48HRS OF ANESTHETIC Vital Signs in Normal Range: Yes Patient Participated in Evaluation: Yes Respiratory Function Stable: Yes Airway Patent: Yes Cardiovascular Function Stable: Yes Hydration Status Stable: Yes Pain Control Satisfactory: Yes Nausea and Vomiting Control Satisfactory: Yes Mental Status Recovered: Yes
--- NOTE | 2017-06-28 09:25 | PCM.SURGPN ---
- General Info Date of Service: 06/28/17 POD#: 1 Functional Status: Reports: Pain Controlled - Review of Systems General: Reports: No Symptoms HEENT: Reports: No Symptoms Pulmonary: Reports: No Symptoms Cardiovascular: Reports: No Symptoms Gastrointestinal: Reports: No Symptoms Genitourinary: Reports: No Symptoms Musculoskeletal: Reports: No Symptoms Skin: Reports: No Symptoms Neurological: Reports: No Symptoms Psychiatric: Reports: No Symptoms - Patient Data Vitals - Most Recent: Last Vital Signs Temp 36.7 C 06/28/17 08:00 Pulse 79 06/28/17 08:00 Resp 16 06/28/17 08:00 BP 121/59 L 06/28/17 08:00 Pulse Ox 95 06/28/17 08:00 Weight - Most Recent: 102.058 kg I&O - Last 24 Hours: Intake & Output 06/27/17 06/28/17 06/28/17 22:59 06:59 14:59 Intake Total 600 2000 Output Total 1750 1700 Balance -1150 300 Lab Results Last 24 Hrs: Laboratory Results - last 24 hr 06/28/17 06/28/17 Range/Units 06:20 06:20 WBC 9.46 (4.0-11.0) K/uL RBC 3.62 L (4.30-5.90) M/uL Hgb 9.7 L (12.0-16.0) g/dL Hct 29.5 L (36.0-46.0) % MCV 81.5 (80.0-98.0) fL MCH 26.8 L (27.0-32.0) pg MCHC 32.9 (31.0-37.0) g/dL RDW Std Deviation 41.8 (28.0-62.0) fl RDW Coeff of [place] 14 (11.0-15.0) % Plt Count 268 (150-400) K/uL MPV 9.20 (7.40-12.00) fL Neut % (Auto) 65.9 (48.0-80.0) % Lymph % (Auto) 26.5 (16.0-40.0) % [facility] % (Auto) 7.3 (0.0-15.0) % Eos % (Auto) 0.2 (0.0-7.0) % Baso % (Auto) 0.1 (0.0-1.5) % Neut # (Auto) 6.2 H (1.4-5.7) K/uL Lymph # (Auto) 2.5 H (0.6-2.4) K/uL [facility] # (Auto) 0.7 (0.0-0.8) K/uL Eos # (Auto) 0.0 (0.0-0.7) K/uL Baso # (Auto) 0.0 (0.0-0.1) K/uL Nucleated RBC % 0.0 /100WBC Nucleated RBCs # 0 K/uL Sodium 139 (136-146) mmol/L Potassium 3.9 (3.5-5.1) mmol/L Chloride 106 (98-110) mmol/L Carbon Dioxide 26 (21-31) mmol/L BUN 7 (6.0-23.0) mg/dL Creatinine 0.7 (0.6-1.5) mg/dL Est Cr Clr Drug Dosing 90.36 mL/min Estimated GFR (MDRD) > 60.0 ml/min Glucose 104 (60-110) mg/dL Calcium 8.9 (8.8-10.8) mg/dL Med Orders - Current: Current Medications Citalopram Hydrobromide (Celexa) 40 mg PO BEDTIME [facility] Last Admin: 06/27/17 21:01 Dose: 40 mg Lactated Ringer's (Ringers, Lactated) 1,000 mls @ 125 mls/hr IV ASDIRECTED [facility] Ketorolac Tromethamine (Toradol) 30 mg IVPUSH Q6H PRN PRN Reason: Pain (severe 7-10) Stop: 07/02/17 10:22 Last Admin: 06/27/17 16:54 Dose: 30 mg Morphine Sulfate (Morphine) 2 mg IVPUSH Q2H PRN PRN Reason: Pain (severe 7-10) Last Admin: 06/27/17 20:23 Dose: 2 mg Morphine Sulfate (Morphine) 4 mg IVPUSH Q2H PRN PRN Reason: Pain (severe 7-10) Ondansetron HCl (Zofran) 4 mg IVPUSH Q6H PRN PRN Reason: Nausea/Vomiting Oxycodone/Acetaminophen (Percocet 325-5 Mg) 1 tab PO Q4H PRN PRN Reason: Pain (moderate 4-6) Last Admin: 06/28/17 00:12 Dose: 1 tab Oxycodone/Acetaminophen (Percocet 325-5 Mg) 2 tab PO Q4H PRN PRN Reason: Pain (moderate 4-6) Last Admin: 06/28/17 07:13 Dose: 2 tab Pantoprazole Sodium (Protonix) 40 mg PO BEDTIME [facility] Last Admin: 06/27/17 21:00 Dose: 40 mg Tamoxifen 20 Mg 1 each PO BEDTIME [facility] Promethazine HCl (Phenergan) 25 mg IM Q6H PRN PRN Reason: Nausea/Vomiting Scopolamine (Transderm-Scop) 1.5 mg TRDERM Q72H PRN PRN Reason: Nausea Last Admin: 06/27/17 07:28 Dose: 1.5 mg Simvastatin (Zocor) 20 mg PO BEDTIME [facility] Last Admin: 06/27/17 21:00 Dose: 20 mg Sodium Chloride (Saline Flush) 10 ml FLUSH ASDIRECTED PRN PRN Reason: Keep Vein Open Sodium Chloride (Saline Flush) 2.5 ml FLUSH ASDIRECTED PRN PRN Reason: Keep Vein Open Discontinued Medications Belladonna Alkaloids/Opium (B & O Supprettes No. 15a) 1 supp RECTAL ONETIME ONE Stop: 06/27/17 11:05 Last Admin: 06/27/17 11:16 Dose: 1 supp Belladonna Alkaloids/Opium (B & O Supprettes No. 15a) Confirm Administered Dose 1 supp .ROUTE .STK-MED ONE Stop: 06/27/17 11:11 Last Admin: 06/27/17 14:09 Dose: Not Given Cefazolin Sodium (Ancef) Confirm Administered Dose 2 gm .ROUTE .STK-MED ONE Stop: 06/27/17 08:16 Dexamethasone (Dexamethasone) Confirm Administered Dose 20 mg .ROUTE .STK-MED ONE Stop: 06/27/17 08:28 Ephedrine Sulfate (Ephedrine Sulfate) Confirm Administered Dose 50 mg .ROUTE .STK-MED ONE Stop: 06/27/17 08:26 Famotidine (Pepcid) 20 mg IVPUSH ONETIME ONE Stop: 06/27/17 07:22 Last Admin: 06/27/17 07:28 Dose: 20 mg Fentanyl (Sublimaze) Confirm Administered Dose 250 mcg .ROUTE .STK-MED ONE Stop: 06/27/17 07:10 Fentanyl (Sublimaze) Confirm Administered Dose 100 mcg .ROUTE .ST-MED ONE Stop: 06/27/17 09:02 Fluorescein Sodium (Ak-Fluor) Confirm Administered Dose 5 ml .ROUTE .STK-MED ONE Stop: 06/27/17 08:48 Furosemide (Lasix) Confirm Administered Dose 40 mg .ROUTE .ST-MED ONE Stop: 06/27/17 08:34 Glycopyrrolate (Robinul) Confirm Administered Dose 0.2 mg .ROUTE .ST-MED ONE Stop: 06/27/17 08:29 Cefazolin Sodium/Dextrose 2 gm (/ Premix) 50 mls @ 100 mls/hr IV ONETIME ONE Stop: 06/26/17 11:30 Last Admin: 06/27/17 12:47 Dose: Not Given Sodium Chloride (Normal Saline) Confirm Administered Dose 20 mls @ as directed .ROUTE .[facility]-MED ONE Stop: 06/27/17 08:16 Ketorolac Tromethamine (Toradol) 30 mg IVPUSH ONETIME ONE Stop: 06/27/17 10:23 Last Admin: 06/27/17 11:03 Dose: 30 mg Lidocaine (Xylocaine-Mpf 2%) Confirm Administered Dose 5 ml .ROUTE .ST-MED ONE Stop: 06/27/17 07:10 Midazolam HCl (Versed 1 Mg/Ml) Confirm Administered Dose 2 mg .ROUTE .ST-MED ONE Stop: 06/27/17 07:10 Octyl Cyanoacrylate (Dermabond Advance) Confirm Administered Dose 1 applic .ROUTE .ST-MED ONE Stop: 06/27/17 08:47 Ondansetron HCl (Zofran) Confirm Administered Dose 4 mg .ROUTE .ST-MED ONE Stop: 06/27/17 07:10 Propofol (Diprivan 20 Ml) Confirm Administered Dose 200 mg .ROUTE .ST-MED ONE Stop: 06/27/17 07:10 Rocuronium [place] (Zemuron) Confirm Administered Dose 100 mg .ROUTE .STK-MED ONE Stop: 06/27/17 07:10 Succinylcholine Chloride (Succinylcholine In Ns Pf) Confirm Administered Dose 200 mg .ROUTE .STK-MED ONE Stop: 06/27/17 07:10 Tamoxifen Citrate (Nolvadex) 20 mg PO DAILY [facility]FA[facility] Last Admin: 06/27/17 22:25 Dose: Not Given - Exam Wound/Incisions: Healing Well General: Alert, Oriented HEENT: Pupils Equal Neck: Supple Lungs: Clear to Auscultation, Normal Respiratory Effort Cardiovascular: Regular Rate, Regular Rhythm GI/Abdominal Exam: Normal Bowel Sounds, Soft, Non-Tender, No Organomegaly, No Distention, No Abnormal Bruit, No Mass, Pelvis Stable Extremities: Normal Inspection, Normal Range of Motion, Non-Tender, No Pedal Edema, Normal Capillary Refill Skin: Warm, Dry, Intact Neurological: No New Focal Deficit Psy/Mental Status: Alert, Normal Affect, Normal Mood - Problem List Review Problem List Initiated/Reviewed/Updated: Yes - My Orders Last 24 Hours: Active Orders 24 hr Category Date Time Status Patient Status [ADT] Routine ADT 06/27/17 10:22 Active Notify Provider Vital Signs [RC] ASDIRECTED Care 06/27/17 10:22 Active Oxygen Therapy [RC] ASDIRECTED Care 06/27/17 10:22 Active RT BiPAP/CPAP [RC] ASDIRECTED Care 06/27/17 10:36 Active RT Incentive Spirometry [RC] Q2HWA Care 06/27/17 10:22 Active Up With Assistance [RC] PER UNIT ROUTINE Care 06/27/17 10:22 Active Up ad Amanda [RC] PER UNIT ROUTINE Care 06/27/17 10:22 Active Regular Diet [DIET] Diet 06/27/17 Lunch Active Acetaminophen/oxyCODONE [Percocet 325-5 MG] Med 06/27/17 10:22 Active 1 tab PO Q4H PRN Acetaminophen/oxyCODONE [Percocet 325-5 MG] Med 06/27/17 10:22 Active 2 tab PO Q4H PRN Citalopram [Celexa] Med 06/27/17 21:00 Active 40 mg PO BEDTIME Ketorolac [Toradol] Med 06/27/17 10:22 Active 30 mg IVPUSH Q6H PRN Morphine Med 06/27/17 10:22 Active 2 mg IVPUSH Q2H PRN Morphine Med 06/27/17 10:22 Active 4 mg IVPUSH Q2H PRN Ondansetron [Zofran] Med 06/27/17 10:22 Active 4 mg IVPUSH Q6H PRN Pantoprazole [ProTONIX] Med 06/27/17 21:00 Active 40 mg PO BEDTIME Patient's Own Medication [Ptom] Med 06/28/17 21:00 Active 1 each PO BEDTIME Promethazine [Phenergan] Med 06/27/17 10:22 Active 25 mg IM Q6H PRN Simvastatin [Zocor] Med 06/27/17 21:00 Active 20 mg PO BEDTIME Peripheral IV Discontinue [OM.PC] Routine Oth 06/27/17 10:22 Ordered Sequential Compression Device [OM.PC] Per Unit Routine Oth 06/27/17 10:22 Ordered Resuscitation Status Routine Resus Stat 06/27/17 10:22 Ordered Medication Orders Citalopram Hydrobromide (Celexa) 40 mg PO BEDTIME [facility] Last Admin: 06/27/17 21:01 Dose: 40 mg Lactated Ringer's (Ringers, Lactated) 1,000 mls @ 125 mls/hr IV ASDIRECTED [facility]FA[facility] Ketorolac Tromethamine (Toradol) 30 mg IVPUSH Q6H PRN PRN Reason: Pain (severe 7-10) Stop: 07/02/17 10:22 Last Admin: 06/27/17 16:54 Dose: 30 mg Morphine Sulfate (Morphine) 2 mg IVPUSH Q2H PRN PRN Reason: Pain (severe 7-10) Last Admin: 06/27/17 20:23 Dose: 2 mg Admin: 06/27/17 11:07 Dose: 2 mg Morphine Sulfate (Morphine) 4 mg IVPUSH Q2H PRN PRN Reason: Pain (severe 7-10) Ondansetron HCl (Zofran) 4 mg IVPUSH Q6H PRN PRN Reason: Nausea/Vomiting Oxycodone/Acetaminophen (Percocet 325-5 Mg) 1 tab PO Q4H PRN PRN Reason: Pain (moderate 4-6) Last Admin: 06/28/17 00:12 Dose: 1 tab Admin: 06/27/17 14:01 Dose: 1 tab Oxycodone/Acetaminophen (Percocet 325-5 Mg) 2 tab PO Q4H PRN PRN Reason: Pain (moderate 4-6) Last Admin: 06/28/17 07:13 Dose: 2 tab Pantoprazole Sodium (Protonix) 40 mg PO BEDTIME [facility] Last Admin: 06/27/17 21:00 Dose: 40 mg Tamoxifen 20 Mg 1 each PO BEDTIME [facility] Promethazine HCl (Phenergan) 25 mg IM Q6H PRN PRN Reason: Nausea/Vomiting Scopolamine (Transderm-Scop) 1.5 mg TRDERM Q72H PRN PRN Reason: Nausea Last Admin: 06/27/17 07:28 Dose: 1.5 mg Simvastatin (Zocor) 20 mg PO BEDTIME [facility] Last Admin: 06/27/17 21:00 Dose: 20 mg Sodium Chloride (Saline Flush) 10 ml FLUSH ASDIRECTED PRN PRN Reason: Keep Vein Open Sodium Chloride (Saline Flush) 2.5 ml FLUSH ASDIRECTED PRN PRN Reason: Keep Vein Open - Assessment Assessment (Free Text/Narrative):: Status post total laparoscopic hysterectomy and laparoscopic bilateral salpingo- oophorectomy and cystoscopy today's postoperative day #1 patient doing well she is voiding without any problem she is nonbleeding she is on regular diet tolerated very well she is ambulatory laparoscopic incision is clean and dry - Plan Plan (Free Text/Narrative):: The post hysterectomy instruction is given to the patient the patient would be discharged today prescription for Percocet 7.5/325 is given for postoperative pain patient is to be seen in the office one week after her surgery
--- NOTE | 2017-06-28 09:26 | PCM.DCSUM1 ---
Discharge Summary - Discharge Data Discharge Date: 06/28/17 Discharge Disposition: Home, Self-Care 01 Condition: Good - Patient Summary/Data Operative Procedure(s) Performed: TL[facility] BSO CYSTO - Patient Instructions Diet: Usual Diet as Tolerated Activity: As Tolerated Driving: Do Not Drive Showering/Bathing: May Shower Notify Provider of: Fever, Increased Pain, Nausea and/or Vomiting - Discharge Plan Home Medications: Home Meds Citalopram [Citalopram HBr] 40 mg PO DAILY 06/13/17 [History] Pantoprazole [ProTONIX] 40 mg PO DAILY 06/13/17 [History] Simvastatin [Zocor] 20 mg PO DAILY 06/13/17 [History] Tamoxifen [Nolvadex] 20 mg PO DAILY 06/13/17 [History] traZODone HCl [Trazodone HCl] 50 mg PO DAILY 06/13/17 [History] Ascorbic Acid [Vitamin C] 1,000 mg PO DAILY 06/26/17 [History] Cholecalciferol (Vitamin D3) [Vitamin D3] 2,000 units PO DAILY 06/26/17 [History ] Hydrocodone/Acetaminophen [Hydrocodon-Acetaminophen 5-325] 1 tab PO ASDIRECTED PRN 06/26/17 [History] Ibuprofen 3 - 4 tab PO ASDIRECTED PRN 06/26/17 [History] Naproxen 1 tab PO ASDIRECTED PRN 06/26/17 [History] Naproxen Sodium [Aleve] 2 tab PO ASDIRECTED PRN 06/26/17 [History] Vitron With Iron 1 tab PO DAILY 06/26/17 [History] traMADol [Ultram] 50 mg PO ASDIRECTED PRN 06/26/17 [History] Referrals: Marcio Green MD [Physician] - 07/08/17 8:30 am - General Info Date of Service: 06/28/17 Functional Status: Reports: Pain Controlled - Review of Systems General: Reports: No Symptoms HEENT: Reports: No Symptoms Pulmonary: Reports: No Symptoms Cardiovascular: Reports: No Symptoms Gastrointestinal: Reports: No Symptoms Genitourinary: Reports: No Symptoms Musculoskeletal: Reports: No Symptoms Skin: Reports: No Symptoms Neurological: Reports: No Symptoms Psychiatric: Reports: No Symptoms - Patient Data Vitals - Most Recent: Last Vital Signs Temp 36.7 C 06/28/17 08:00 Pulse 79 06/28/17 08:00 Resp 16 06/28/17 08:00 BP 121/59 L 06/28/17 08:00 Pulse Ox 95 06/28/17 08:00 Weight - Most Recent: 102.058 kg I&O - Last 24 hours: Intake & Output 06/27/17 06/28/17 06/28/17 22:59 06:59 14:59 Intake Total 600 2000 Output Total 1750 1700 Balance -1150 300 Lab Results - Last 24 hrs: Laboratory Results - last 24 hr 06/28/17 06/28/17 Range/Units 06:20 06:20 WBC 9.46 (4.0-11.0) K/uL RBC 3.62 L (4.30-5.90) M/uL Hgb 9.7 L (12.0-16.0) g/dL Hct 29.5 L (36.0-46.0) % MCV 81.5 (80.0-98.0) fL MCH 26.8 L (27.0-32.0) pg MCHC 32.9 (31.0-37.0) g/dL RDW Std Deviation 41.8 (28.0-62.0) fl RDW Coeff of [place] 14 (11.0-15.0) % Plt Count 268 (150-400) K/uL MPV 9.20 (7.40-12.00) fL Neut % (Auto) 65.9 (48.0-80.0) % Lymph % (Auto) 26.5 (16.0-40.0) % [place] % (Auto) 7.3 (0.0-15.0) % Eos % (Auto) 0.2 (0.0-7.0) % Baso % (Auto) 0.1 (0.0-1.5) % Neut # (Auto) 6.2 H (1.4-5.7) K/uL Lymph # (Auto) 2.5 H (0.6-2.4) K/uL [place]mers # (Auto) 0.7 (0.0-0.8) K/uL Eos # (Auto) 0.0 (0.0-0.7) K/uL Baso # (Auto) 0.0 (0.0-0.1) K/uL Nucleated RBC % 0.0 /100WBC Nucleated RBCs # 0 K/uL Sodium 139 (136-146) mmol/L Potassium 3.9 (3.5-5.1) mmol/L Chloride 106 (98-110) mmol/L Carbon Dioxide 26 (21-31) mmol/L BUN 7 (6.0-23.0) mg/dL Creatinine 0.7 (0.6-1.5) mg/dL Est Cr Clr Drug Dosing 90.36 mL/min Estimated GFR (MDRD) > 60.0 ml/min Glucose 104 (60-110) mg/dL Calcium 8.9 (8.8-10.8) mg/dL Med Orders - Current: Current Medications Citalopram Hydrobromide (Celexa) 40 mg PO BEDTIME [facility] Last Admin: 06/27/17 21:01 Dose: 40 mg Lactated Ringer's (Ringers, Lactated) 1,000 mls @ 125 mls/hr IV ASDIRECTED [facility] Ketorolac Tromethamine (Toradol) 30 mg IVPUSH Q6H PRN PRN Reason: Pain (severe 7-10) Stop: 07/02/17 10:22 Last Admin: 06/27/17 16:54 Dose: 30 mg Morphine Sulfate (Morphine) 2 mg IVPUSH Q2H PRN PRN Reason: Pain (severe 7-10) Last Admin: 06/27/17 20:23 Dose: 2 mg Morphine Sulfate (Morphine) 4 mg IVPUSH Q2H PRN PRN Reason: Pain (severe 7-10) Ondansetron HCl (Zofran) 4 mg IVPUSH Q6H PRN PRN Reason: Nausea/Vomiting Oxycodone/Acetaminophen (Percocet 325-5 Mg) 1 tab PO Q4H PRN PRN Reason: Pain (moderate 4-6) Last Admin: 06/28/17 00:12 Dose: 1 tab Oxycodone/Acetaminophen (Percocet 325-5 Mg) 2 tab PO Q4H PRN PRN Reason: Pain (moderate 4-6) Last Admin: 06/28/17 07:13 Dose: 2 tab Pantoprazole Sodium (Protonix) 40 mg PO BEDTIME [facility] Last Admin: 06/27/17 21:00 Dose: 40 mg Tamoxifen 20 Mg 1 each PO BEDTIME [facility] Promethazine HCl (Phenergan) 25 mg IM Q6H PRN PRN Reason: Nausea/Vomiting Scopolamine (Transderm-Scop) 1.5 mg TRDERM Q72H PRN PRN Reason: Nausea Last Admin: 06/27/17 07:28 Dose: 1.5 mg Simvastatin (Zocor) 20 mg PO BEDTIME [facility] Last Admin: 06/27/17 21:00 Dose: 20 mg Sodium Chloride (Saline Flush) 10 ml FLUSH ASDIRECTED PRN PRN Reason: Keep Vein Open Sodium Chloride (Saline Flush) 2.5 ml FLUSH ASDIRECTED PRN PRN Reason: Keep Vein Open Discontinued Medications Belladonna Alkaloids/Opium (B & O Supprettes No. 15a) 1 supp RECTAL ONETIME ONE Stop: 06/27/17 11:05 Last Admin: 06/27/17 11:16 Dose: 1 supp Belladonna Alkaloids/Opium (B & O Supprettes No. 15a) Confirm Administered Dose 1 supp .ROUTE .STK-MED ONE Stop: 06/27/17 11:11 Last Admin: 06/27/17 14:09 Dose: Not Given Cefazolin Sodium (Ancef) Confirm Administered Dose 2 gm .ROUTE .STK-MED ONE Stop: 06/27/17 08:16 Dexamethasone (Dexamethasone) Confirm Administered Dose 20 mg .ROUTE .STK-MED ONE Stop: 06/27/17 08:28 Ephedrine Sulfate (Ephedrine Sulfate) Confirm Administered Dose 50 mg .ROUTE .STK-MED ONE Stop: 06/27/17 08:26 Famotidine (Pepcid) 20 mg IVPUSH ONETIME ONE Stop: 06/27/17 07:22 Last Admin: 06/27/17 07:28 Dose: 20 mg Fentanyl (Sublimaze) Confirm Administered Dose 250 mcg .ROUTE .STK-MED ONE Stop: 06/27/17 07:10 Fentanyl (Sublimaze) Confirm Administered Dose 100 mcg .ROUTE .STK-MED ONE Stop: 06/27/17 09:02 Fluorescein Sodium (Ak-Fluor) Confirm Administered Dose 5 ml .ROUTE .STK-MED ONE Stop: 06/27/17 08:48 Furosemide (Lasix) Confirm Administered Dose 40 mg .ROUTE .STK-MED ONE Stop: 06/27/17 08:34 Glycopyrrolate (Robinul) Confirm Administered Dose 0.2 mg .ROUTE .STK-MED ONE Stop: 06/27/17 08:29 Cefazolin Sodium/Dextrose 2 gm (/ Premix) 50 mls @ 100 mls/hr IV ONETIME ONE Stop: 06/26/17 11:30 Last Admin: 06/27/17 12:47 Dose: Not Given Sodium Chloride (Normal Saline) Confirm Administered Dose 20 mls @ as directed .ROUTE .STK-MED ONE Stop: 06/27/17 08:16 Ketorolac Tromethamine (Toradol) 30 mg IVPUSH ONETIME ONE Stop: 06/27/17 10:23 Last Admin: 06/27/17 11:03 Dose: 30 mg Lidocaine (Xylocaine-Mpf 2%) Confirm Administered Dose 5 ml .ROUTE .STK-MED ONE Stop: 06/27/17 07:10 Midazolam HCl (Versed 1 Mg/Ml) Confirm Administered Dose 2 mg .ROUTE .STK-MED ONE Stop: 06/27/17 07:10 Octyl Cyanoacrylate (Dermabond Advance) Confirm Administered Dose 1 applic .ROUTE .STK-MED ONE Stop: 06/27/17 08:47 Ondansetron HCl (Zofran) Confirm Administered Dose 4 mg .ROUTE .STK-MED ONE Stop: 06/27/17 07:10 Propofol (Diprivan 20 Ml) Confirm Administered Dose 200 mg .ROUTE .STK-MED ONE Stop: 06/27/17 07:10 Rocuronium [place] (Zemuron) Confirm Administered Dose 100 mg .ROUTE .STK-MED ONE Stop: 06/27/17 07:10 Succinylcholine Chloride (Succinylcholine In Ns Pf) Confirm Administered Dose 200 mg .ROUTE .STK-MED ONE Stop: 06/27/17 07:10 Tamoxifen Citrate (Nolvadex) 20 mg PO DAILY [facility] Last Admin: 06/27/17 22:25 Dose: Not Given - Exam General: Reports: Alert, Oriented HEENT: Reports: Pupils Equal, Pupils Reactive, EOMI, Mucous Membr. Moist/Peridot Neck: Reports: Supple Lungs: Reports: Clear to Auscultation, Normal Respiratory Effort Cardiovascular: Reports: Regular Rate, Regular Rhythm GI/Abdominal Exam: Normal Bowel Sounds, Soft, Non-Tender, No Organomegaly, No Distention, No Abnormal Bruit, No Mass, Pelvis Stable (Female) Exam: Normal External Exam, Normal Speculum Exam, Normal Bimanual Exam Rectal (Female) Exam: Normal Exam, Normal Rectal Tone Back Exam: Reports: Normal Inspection, Full Range of Motion Extremities: Normal Inspection, Normal Range of Motion, Non-Tender, No Pedal Edema, Normal Capillary Refill Skin: Reports: Warm, Dry, Intact Wound/Incisions: Reports: Healing Well Neurological: Reports: No New Focal Deficit Psy/Mental Status: Reports: Alert, Normal Affect, Normal Mood *Q Meaningful Use (DIS) - VTE *Q VTE Criteria *Q: - Stroke *Q Stroke Criteria *Q: - AMI *Q AMI Criteria *Q:
== END 2017-06-28 10:45 | disposition home or self-care (01) ==
LOC: MW.SDS 06:48 → MW.MS 10:22 → MW.SDS 06-28 10:45
PROVIDERS: ATTEND Obstetrics & Gynecology
DX: D27.0 Benign neoplasm of right ovary (principal); J30.9 Allergic rhinitis, unspecified; F41.9 Anxiety disorder, unspecified; F32.9 Major depressive disorder, single episode, unspecified; K21.9 Gastro-esophageal reflux disease without esophagitis; E78.00 Pure hypercholesterolemia, unspecified; G47.00 Insomnia, unspecified; G43.909 Migraine, unspecified, not intractable, without status migrainosus; J32.9 Chronic sinusitis, unspecified; M19.90 Unspecified osteoarthritis, unspecified site; E66.9 Obesity, unspecified; Z79.899 Other long term (current) drug therapy; Z88.8 Allergy status to other drugs, medicaments and biological substances; Z88.1 Allergy status to other antibiotic agents; Z98.890 Other specified postprocedural states; Z90.49 Acquired absence of other specified parts of digestive tract; Z90.89 Acquired absence of other organs; Z99.89 Dependence on other enabling machines and devices; Z85.3 Personal history of malignant neoplasm of breast; Z68.37 Body mass index [BMI] 37.0-37.9, adult
CPT/HCPCS: 36415; 58571; 80048; 84703; 85025; 85027; 86850; 86900; 86901; 88307; 94660; A9270; J0690; J1100; J1885; J1940; J2250; J2270; J2405; J3010; 00840; J2704

== ENCOUNTER 2021-11-19 08:42 | Emergency (ER) | payer BC ==
[2021-11-19] MEDS ORDERED: Sodium Chloride 0.9% 2.5 ML Syringe FLUSH PRN (08:44)
[2021-11-19] MEDS ORDERED: Sodium Chloride 0.9% 10 ML Syringe FLUSH PRN (08:44)
[2021-11-19] MEDS ORDERED: Alum Hydro/Mag Hydro/Simeth XS 15 ML, Lidocaine 2% 5 ML PO ONE ×2 (09:58)
[2021-11-19] MEDS ORDERED: Ketorolac 30 MG/ML SDV IVPUSH ONE (09:59)
[2021-11-19] MEDS ORDERED: Pantoprazole 40 MG in Sodium Chloride 0.9% 10 ML IVPUSH ONE (09:59)
[2021-11-19] MEDS ORDERED: fentaNYL 50 MCG/ML SDV IVPUSH ONE ×3 (10:53→14:43)
[2021-11-19] MEDS ORDERED: Ondansetron 4 MG/2 ML SDV IVPUSH ONE (10:53)
[2021-11-19 11:26] LABS: LIPASE 66 U/L (73-393)
[2021-11-19] MEDS ORDERED: Iopamidol 755 MG/ML 500 ML Multipack Bottle IVPUSH STA (13:00)
== END 2021-11-19 15:05 | disposition home or self-care (01) ==
LOC: MW.ED 08:42
DX: R07.89 Other chest pain (principal); K21.9 Gastro-esophageal reflux disease without esophagitis; E78.00 Pure hypercholesterolemia, unspecified; E66.9 Obesity, unspecified; Z68.34 Body mass index [BMI] 34.0-34.9, adult; Z90.49 Acquired absence of other specified parts of digestive tract; Z88.1 Allergy status to other antibiotic agents; Z91.048 Other nonmedicinal substance allergy status; Z79.899 Other long term (current) drug therapy
CPT/HCPCS: 36415; 71045; 71046; 71275; 80053; 83690; 84484; 85025; 85379; 93005; 96374; 96375; 96376; 99285; A9270; C9113; J1885; J2405; J3010; J3490; Q9967; 93010; 99284

== ENCOUNTER 2025-02-17 08:39 | Emergency (ER) | payer BC ==
[2025-02-17] MEDS: Ondansetron 4 MG/2 ML SDV IVPUSH ONE (09:31)
[2025-02-17] MEDS: Ketorolac 30 MG/ML SDV IVPUSH ONE (09:31)
[2025-02-17 09:35] LABS: BASOPHILS ABSOLUTE AUTO 0.04 K/uL (0.00-0.20); BASOPHILS PERCENT AUTO 0.5 % (0.0-1.0); EOSINOPHILS ABSOLUTE AUTO 0.13 K/uL (0.00-0.45); EOSINOPHILS PERCENT AUTO 1.7 % (0.0-6.0); IMMATURE GRAN ABSOLUTE AUTO 0.01 K/uL (0.00-0.05); IMMATURE GRAN PERCENT AUTO 0.1 % (0.0-0.4); LYMPHOCYTES ABSOLUTE AUTO 1.62 K/uL (1.00-4.80); LYMPHOCYTES PERCENT AUTO 21.3 % (24.0-44.0); MEAN PLATELET VOLUME 9.5 fL (9.4-12.3); MONOCYTES ABSOLUTE AUTO 0.42 K/uL (0.00-0.80); MONOCYTES PERCENT AUTO 5.5 % (0.0-8.0); NEUTROPHILS ABSOLUTE AUTO 5.38 K/uL (1.80-7.70); NEUTROPHILS PERCENT AUTO 70.9 % (41.0-71.0); NRBC ABSOLUTE 0.00 K/uL (0.00-0.02); NRBC PERCENT 0.0 /100WBC (0.0-0.2); PLATELET COUNT,PLT 332 K/uL (150-400); RED BLOOD CELL COUNT 5.09 M/uL (4.10-5.30); WHITE BLOOD CELL COUNT,WBC 7.60 K/uL (3.9-11.3)
[2025-02-17] MEDS: Alum Hydrox/Mag Hydrox/Simeth 15 ML, Metoclopramide 5 MG, Lidocaine 2% 5 ML PO ONE (10:08)
[2025-02-17 10:10] LABS: A/G RATIO 1.1 (0.9-1.6); ALANINE AMINOTRANSFERASE,ALT 29.0 IU/L (14-63); ASPARTATE AMNIOTRANSFERASE,AST 16.0 IU/L (15-37); BILIRUBIN TOTAL 0.5 mg/dL (0.2-1.0); BLOOD UREA NITROGEN,BUN 12.0 mg/dL (7.0-18.0); CARBON DIOXIDE,CO2 30.5 mmol/L (21.0-32.0); CHLORIDE,CL 99.0 mmol/L (98-107); CREATININE 1.2 mg/dL (0.6-1.0); EST CRCL DRUG DOSING (CG) 48.23 mL/min; GLUCOSE RANDOM 112.0 mg/dL (74-106); POTASSIUM,K 2.9 mmol/L (3.5-5.1); PROTEIN TOTAL,TP 7.7 g/dL (6.4-8.2); SODIUM,NA 142.0 mmol/L (136-145)
[2025-02-17 10:19] LABS: ESTIMATED GFR 54.0 mL/min (>60)
[2025-02-17] MEDS: Iopamidol 755 MG/ML 500 ML Multipack Bottle IVPUSH STA (10:58)
[2025-02-17] MEDS: Potassium Chloride 10% 20 MEQ/15 ML Soln 15 ML UD Cup PO ONE (11:07)
[2025-02-17] MEDS: Magnesium Sulfate 2 GM/50 mL 2 GM in Premix Bag 1 BAG IV ONE (11:07)
== END 2025-02-17 12:19 | disposition home or self-care (01) ==
LOC: MW.ED 08:39
DX: M25.512 Pain in left shoulder (principal); R10.13 Epigastric pain; R11.2 Nausea with vomiting, unspecified; R55 Syncope and collapse; E86.0 Dehydration; E78.00 Pure hypercholesterolemia, unspecified; K21.9 Gastro-esophageal reflux disease without esophagitis; E66.9 Obesity, unspecified; Z90.49 Acquired absence of other specified parts of digestive tract; Z90.710 Acquired absence of both cervix and uterus; Z88.8 Allergy status to other drugs, medicaments and biological substances; Z91.048 Other nonmedicinal substance allergy status; Z79.899 Other long term (current) drug therapy
CPT/HCPCS: 36415; 71045; 73030; 74177; 80053; 83690; 83735; 84484; 85025; 93005; 96361; 96365; 96375; 99284; A9270; J1308; J1885; J2405; J3475; J3490; J7030; Q9967; 93010